=== PATIENT | female | born 1930 | race Caucasian/White ===

== ENCOUNTER 2016-11-28 19:55 | Observation (INO) ==
--- NOTE | 2016-11-28 20:08 | Emergency Department Note ---
Disposition Clinical Impression: Confusion, Uncontrolled hypertension Urinary tract infection Qualifiers: Urinary tract infection type: acute cystitis Hematuria presence: without hematuria Qualified Code(s): N30.00 - Acute cystitis without hematuria Disposition: Admitted As Inpatient Condition: Good Time of Disposition: 23:58 Altered Mental Status HPI - General Chief Complaint: ED Altered Mental Status Stated Complaint: Confused, Disoriented Time Seen by Provider: 11/28/16 20:00 Source: patient Mode of arrival: ambulatory Limitations: no limitations Nursing Notes Reviewed: Yes Vital Signs Reviewed: Yes - History of Present Illness HPI Narrative: 85-year-old white female transported by EMS because of confusion. Apparently she left her house at 9 AM this morning. She lives in [facility]. She does not have any idea where she was going. She is now approximately an hour from home. She apparently stopped a bystander for help, who contacted the state police. MD complaint: confusion Onset (ago): hour(s) (11) Pain Severity: none Consistency of Symptoms: unknown Associated symptoms: Reports: denies other symptoms Treatments prior to arrival: other (None) - Related Data Home Medications Medication Instructions Recorded Confirmed Losartan 25 mg PO DAILY 11/28/16 11/28/16 Omeprazole 11/28/16 11/28/16 Pravastatin Sodium [Pravachol] 80 mg PO QPM 11/28/16 11/28/16 metFORMIN 1,000 mg PO BID 11/28/16 11/28/16 Allergies Allergy/AdvReac Type Severity Reaction Status Date / Time No Known Allergies Allergy Verified 11/28/16 21:09 All systems ED: reviewed and negative except as stated. Constitutional: Denies: fever, chills Eyes: Denies: vision change ENT ED: Denies: ear pain, throat pain Cardiovascular: Denies: chest pain Respiratory: Denies: cough, dyspnea Gastrointestinal: Denies: abdominal pain, nausea, vomiting, diarrhea Genitourinary: Denies: urgency, dysuria, frequency Musculoskeletal: Denies: back pain, neck pain Integumentary: Denies: rash Neurological: Denies: headache, weakness, numbness, paresthesias Past Medical History - Past Medical History Medical history: Reports: diabetes, hypertension Psychiatric history: Reports: no psych history - Social History Smoking Status: Never smoker Alcohol use: Reports: none Drug use: Reports: none Physical Exam - General Limitations: altered mental status General appearance: alert, in no apparent distress - Head Head exam: atraumatic, normocephalic - Eye Eye exam: Present: PERRL, EOMI. Absent: scleral icterus, conjunctival injection - ENT ENT exam: normal oropharynx, mucous membranes moist, TM's normal bilaterally - Neck Neck exam: Present: normal inspection, full ROM, trachea midline. Absent: tenderness, lymphadenopathy - Chest Chest inspection: Present: normal inspection, symmetric chest wall rise - Respiratory Respiratory exam: Present: normal lung sounds bilaterally. Absent: respiratory distress, wheezes - Cardiovascular Cardiovascular exam: Present: regular rate, normal rhythm, systolic murmur ( Left sternal border, 2/6) - Abdominal Exam Abdominal exam: Present: soft, Non-Tender, normal bowel sounds. Absent: distention, organomegaly, mass - Extremities Exam Extremities exam: Present: normal inspection, full ROM, normal capillary refill. Absent: tenderness, calf tenderness - Neurological Exam Neurological exam: Present: alert, reflexes normal. Absent: oriented X3 ( Oriented to person and place, not time. She thinks it is 1971), motor sensory deficit - Psychiatric Psychiatric exam: Present: normal affect, normal mood - Skin Skin exam: Present: warm, dry, intact, normal color Course - Reevaluation(s) Reevaluation #1: Patient remained stable, unchanged. Her blood pressures improved with a single dose of labetalol IV. Her current blood pressure is 160/81. I have discussed with the patient and her family that I felt it was be prudent for her to be observed overnight, IV antibiotics, neuro checks, monitoring of her blood pressure. The patient really wants to go home. She is going to talk with her family and they are going to let me know what the disposition will be. Time: 22:50 Vital Signs Temperature 98.6 F 11/28/16 19:59 Pulse Rate 85 11/28/16 19:59 Respiratory Rate 16 11/28/16 19:59 Blood Pressure 141/105 11/28/16 19:59 O2 Sat by Pulse Oximetry 94 11/28/16 19:59 Temperature 98.6 F 11/28/16 23:38 Pulse Rate 72 11/28/16 23:18 Respiratory Rate 18 11/28/16 23:38 Blood Pressure 158/81 11/28/16 23:38 O2 Sat by Pulse Oximetry 96 11/28/16 23:18 Oxygen Delivery Oxygen Delivery Room Air Altered Mental Status - Differential Diagnosis Likely: alcoholic intoxication, altered mental status, delirium, dementia, hypoglycemia, hyponatremia, psychiatric disease, subarachnoid hemorrhage - Lab Data Lab results reviewed: Yes I reviewed the patient's lab results. Result diagrams: 11/28/16 20:27 11/28/16 20:27 Lab Results 11/28/16 11/28/16 11/28/16 Range/Units 20:26 20:27 20:27 WBC 5.5 (4.3-11.1) K/mcL RBC 4.51 (3.82-4.97) M/mcL Hgb 12.2 (11.5-15.4) g/dL Hct 36.5 (35.3-44.9) % MCV 80.9 L (83.0-100.0) fL MCH 27.1 L (28.0-33.3) pg MCHC 33.4 (31.6-35.5) g/dL RDW 14.7 H (11.5-14.5) % Plt Count 159 (140-400) K/mcL MPV 10.9 (9.4-12.4) fL Immature Gran % 0.2 (0-4) % Seg Neutrophils % 68.6 % Lymphocytes % 19.3 % Monocytes % 9.0 % Eosinophils % 2.0 % Basophils % 0.9 % Neutrophils # 3.8 (1.6-8.9) K/mcL Lymphocytes # 1.1 (0.6-4.6) K/mcL Monocytes # 0.5 (0.0-1.3) K/mcL Eosinophils # 0.1 (0.0-0.6) K/mcL Basophils # 0.1 (0.0-0.2) K/mcL Sodium 140 (136-145) mEq/L Potassium 3.4 L (3.5-4.5) mEq/L Chloride 106 (98-109) mEq/L Carbon Dioxide 21 (19-29) mEq/L BUN 15 (7-20) mg/dL Creatinine 0.75 (0.57-1.11) mg/dL Est GFR ( Amer) > 60 (> 60) Est GFR (Non-Af Amer) > 60 (> 60) BUN/Creatinine Ratio 20 (6-26) Glucose 145 H (70-99) mg/dL Calculated Osmolality 293 (280-300) Calcium 9.5 (8.6-10.8) mg/dL Total Bilirubin 0.6 (0.2-1.2) mg/dL AST 16 (5-34) Units/L ALT 14 (0-55) Units/L Alkaline Phosphatase 60 (38-126) Units/L Serum Total Protein 6.5 (6.0-8.3) g/dL Albumin 3.8 (3.5-5.0) g/dL Globulin 2.7 (2.4-3.5) g/dL Albumin/Globulin Ratio 1.4 (1.1-2.2) Urine Color (Yellow) Urine Clarity (Clear) Urine pH (5.0-8.0) pH Units Ur Specific [place] (1.010-1.025) Urine Protein (Neg-Trace) mg/dL Urine Glucose (UA) (Normal) mg/dL Urine Ketones (Negative) mg/dL Urine Blood (Negative) Urine Nitrite (Negative) Urine Bilirubin (Negative) Urine Urobilinogen (Normal) mg/dL Ur Leukocyte Esterase (Negative) Urine Microscopic RBC (0-3) per hpf Urine Microscopic WBC (0-3) per hpf Ur Squamous Epith Cells (None-Few) per lpf Urine Bacteria (None-Few) per hpf Ur Culture Indicated? (NO) Urine Opiates Screen (Iiazzv=366) ng/mL Ur Oxycodone Screen (Cutoff= 100) ng/mL Ur Barbiturates Screen (Nfqduc=877) ng/mL Ur Phencyclidine Scrn (Cutoff=25) ng/mL Ur Amphetamines Screen (Cczorb=1167) ng/mL U Benzodiazepines Scrn (Ridltu=703) ng/mL Urine Cocaine Screen (Cutoff= 300) ng/mL U Marijuana (THC) Screen (Cutoff = 50) ng/mL Ethyl Alcohol < 10 (0-10) mg/dL 11/28/16 11/28/16 Range/Units 22:11 22:11 WBC (4.3-11.1) K/mcL RBC (3.82-4.97) M/mcL Hgb (11.5-15.4) g/dL Hct (35.3-44.9) % MCV (83.0-100.0) fL MCH (28.0-33.3) pg MCHC (31.6-35.5) g/dL RDW (11.5-14.5) % Plt Count (140-400) K/mcL MPV (9.4-12.4) fL Immature Gran % (0-4) % Seg Neutrophils % % Lymphocytes % % Monocytes % % Eosinophils % % Basophils % % Neutrophils # (1.6-8.9) K/mcL Lymphocytes # (0.6-4.6) K/mcL Monocytes # (0.0-1.3) K/mcL Eosinophils # (0.0-0.6) K/mcL Basophils # (0.0-0.2) K/mcL Sodium (136-145) mEq/L Potassium (3.5-4.5) mEq/L Chloride (98-109) mEq/L Carbon Dioxide (19-29) mEq/L BUN (7-20) mg/dL Creatinine (0.57-1.11) mg/dL Est GFR ( Amer) (> 60) Est GFR (Non-Af Amer) (> 60) BUN/Creatinine Ratio (6-26) Glucose (70-99) mg/dL Calculated Osmolality (280-300) Calcium (8.6-10.8) mg/dL Total Bilirubin (0.2-1.2) mg/dL AST (5-34) Units/L ALT (0-55) Units/L Alkaline Phosphatase (38-126) Units/L Serum Total Protein (6.0-8.3) g/dL Albumin (3.5-5.0) g/dL Globulin (2.4-3.5) g/dL Albumin/Globulin Ratio (1.1-2.2) Urine Color Yellow (Yellow) Urine Clarity Clear (Clear) Urine pH 5.5 (5.0-8.0) pH Units Ur Specific [place] 1.020 (1.010-1.025) Urine Protein 30 H (Neg-Trace) mg/dL Urine Glucose (UA) Normal (Normal) mg/dL Urine Ketones 15 H (Negative) mg/dL Urine Blood Trace-intact H (Negative) Urine Nitrite Positive A (Negative) Urine Bilirubin Negative (Negative) Urine Urobilinogen Normal (Normal) mg/dL Ur Leukocyte Esterase Small H (Negative) Urine Microscopic RBC 0-3 (0-3) per hpf Urine Microscopic WBC 30-50 H (0-3) per hpf Ur Squamous Epith Cells Few (None-Few) per lpf Urine Bacteria Many H (None-Few) per hpf Ur Culture Indicated? YES A (NO) Urine Opiates Screen Negative ([place]=605) ng/mL Ur Oxycodone Screen Negative (Cutoff= 100) ng/mL Ur Barbiturates Screen Negative (Pfucgu=972) ng/mL Ur Phencyclidine Scrn Negative (Cutoff=25) ng/mL Ur Amphetamines Screen Negative (Unzkja=1892) ng/mL U Benzodiazepines Scrn Negative (Xaqpqi=074) ng/mL Urine Cocaine Screen Negative (Cutoff= 300) ng/mL U Marijuana (THC) Screen Negative (Cutoff = 50) ng/mL Ethyl Alcohol (0-10) mg/dL - Radiology Data Radiology results reviewed: Yes I reviewed the patient's radiology results. ITS Impressions Chest X-Ray 11/28/16 20:05 IMPRESSION: No acute cardiopulmonary disease. D/ / Sidney Johnston MD / Sidney Johnston MD Interpreting Provider: Sidney Johnston MD Head CT 11/28/16 20:05 IMPRESSION: 1. No acute intracranial abnormality. 2. Findings compatible with chronic small vessel ischemic disease. D/ / Theron Arshad MD / Theron Arshad MD Interpreting Provider: Theron Arshad MD - EKG Data EKG attestation: Yes I reviewed and interpreted this EKG. EKG results narrative: Normal sinus rhythm, rate of 83, nonspecific ST-T changes. Rhythm strip shows sinus rhythm with rate of 83, IN interval 186 ms, QRS of 85 ms with no other ectopy is interpreted by me. No old EKG available for comparison. TPA Checklist - LKW: 3-4.5 hrs Add. Warnings/Precautions Patient/family understanding: The patient/family members have been counseled and understood the risk, benefit , and alternatives of treatment.
[2016-11-28 20:32] LABS: Basophils # 0.1 K/mcL (0.0-0.2); Basophils % 0.9 %; Eosinophils # 0.1 K/mcL (0.0-0.6); Hematocrit 36.5 % (35.3-44.9); Hemoglobin 12.2 g/dL (11.5-15.4); Immature Granulocytes % 0.2 % (0-4); Lymphocytes # 1.1 K/mcL (0.6-4.6); Lymphocytes % 19.3 %; Mean Corpuscular HGB Conc 33.4 g/dL (31.6-35.5); Mean Corpuscular Hemoglobin 27.1 pg (28.0-33.3); Mean Corpuscular Volume 80.9 fL (83.0-100.0); Mean Platelet Volume 10.9 fL (9.4-12.4); Monocytes # 0.5 K/mcL (0.0-1.3); Neutrophils # 3.8 K/mcL (1.6-8.9); Platelet Count 159 K/mcL (140-400); Red Blood Count 4.51 M/mcL (3.82-4.97); Red Cell Distribution Width 14.7 % (11.5-14.5); Segmented Neutrophils % 68.6 %
[2016-11-28 20:50] LABS: Alanine Aminotransferase 14 Units/L (0-55); Albumin 3.8 g/dL (3.5-5.0); Albumin/Globulin Ratio 1.4 (1.1-2.2); Alkaline Phosphatase 60 Units/L (38-126); Aspartate Amino Transferase 16 Units/L (5-34); BUN/Creatinine Ratio 20 (6-26); Bilirubin,Total 0.6 mg/dL (0.2-1.2); Blood Urea Nitrogen 15 mg/dL (7-20); Calcium 9.5 mg/dL (8.6-10.8); Carbon Dioxide 21 mEq/L (19-29); Chloride 106 mEq/L (98-109); Globulin 2.7 g/dL (2.4-3.5); Glucose 145 mg/dL (70-99); Osmolality,Calculated 293 (280-300); Potassium 3.4 mEq/L (3.5-4.5); Sodium 140 mEq/L (136-145); Total Protein 6.5 g/dL (6.0-8.3); eGFR For African Americans > 60 (> 60); eGFR For Non-African Americans > 60 (> 60)
[2016-11-28] MEDS ORDERED: *HR* Labetalol 20 MG/4 ML SYRINGE IVP ONE (21:02)
[2016-11-28 22:19] LABS: Bilirubin,Urine Negative (Negative); Blood,Urine Trace-intact (Negative); Clarity,Urine Clear (Clear); Color,Urine Yellow (Yellow); Glucose,Urine (UA) Normal (Normal); Ketones,Urine 15 mg/dL (Negative); Leukocyte Esterase,Urine Small (Negative); Nitrite,Urine Positive (Negative); PH,Urine 5.5 pH Units (5.0-8.0); Protein,Urine 30 mg/dL (Neg-Trace); Urobilinogen,Urine Normal (Normal)
[2016-11-28 22:33] LABS: Bacteria,Urine Many per hpf (None-Few); RBC,Urine 0-3 per hpf (0-3); Squamous Epithelial Cell,Urine Few per lpf (None-Few); WBC,Urine 30-50 per hpf (0-3)
[2016-11-28 22:40] LABS: Amphetamine Screen,Urine Negative ng/mL (Cutoff=1000); Barbiturate Screen,Urine Negative ng/mL (Cutoff=200); Benzodiazepines Screen,Urine Negative ng/mL (Cutoff=200); Cannabinoid Screen,Urine Negative ng/mL (Cutoff = 50); Cocaine Screen,Urine Negative ng/mL (Cutoff= 300); Opiate Screen,Urine Negative ng/mL (Cutoff=300); Phencyclidine Screen,Urine Negative ng/mL (Cutoff=25)
[2016-11-29] MEDS ORDERED: Naloxone 0.4 MG/ML INJ IVP PRN (00:15)
[2016-11-29] MEDS ORDERED: *HR* Labetalol 20 MG/4 ML SYRINGE IVP SCH (00:15)
[2016-11-29] MEDS ORDERED: *HR* Labetalol 20 MG/4 ML SYRINGE IVP PRN (00:27)
[2016-11-29] MEDS ORDERED: *HR* Enoxaparin 30 MG/0.3 ML SYRINGE SQ SCH (06:00)
[2016-11-29 13:47] VITALS: BP 149/69
--- NOTE | 2016-11-29 14:56 | Internal Med History&Physical ---
Date of Encounter: 11/29/16 Time of Encounter: 14:00 Assessment and Plan (1) Confusion Current visit: Yes Status: Acute Suspect multifactorial etiology including uncontrolled hypertension, urinary infection, and possible underlying dementia process. She will be treated for UTI and restarted on blood pressure medication. Her PCP can monitor her neurologic status and/or refer her to a neurologist (2) Urinary tract infection Current visit: Yes Status: Acute She has been started on antibiotics. Qualifiers: Urinary tract infection type: acute cystitis Hematuria presence: without hematuria Qualified Code(s): N30.00 - Acute cystitis without hematuria (3) Uncontrolled hypertension Current visit: Yes Status: Acute She has been restarted on blood pressure medication. Internal Medicine - H&P: HPI Chief complaint: Confusion Admitted From: Home Plans for Post Hospital Care: Home History of present illness: Ms. Silveira is a 85 year old female who was brought to emergency room after she was found driving in a confused state. She realized she was lost and ask a airport maintenance chief for assistance. He felt she was confused and contacted her son and EMS. She was brought to [facility] emergency room and evaluated and admitted to [facility] floor for ongoing care needs. She states she feels improved at the present time but not quite back to her baseline. Her son and [id number] are in the room and confirm that she has not returned to baseline yet. She denies previous similar episodes of confusion. She was felt to have UTI in emergency room. She had been out of her antihypertensive medication for 2-3 days and was found to have elevated blood pressure in emergency room. Her neurologic history is negative for known strokes or seizures. Her family reports her balance has decreased in the past 1-2 years but she has not fallen. 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 Family reports her memory has declined slightly but patient was unaware of memory loss. Her cardiovascular history is positive for hypertension but negative for HI heart failure angina DVT or pulmonary embolus. She had left carotid endarterectomy in the past. She has been told she has noncritical stenosis of the right carotid artery. Past Med Surg Social Fam HX - Past Medical History Medical history: diabetes, hypertension Psychiatric history: no psych history - Past Surgical History Surgical History: appendectomy - Social History Smoking Status: Never smoker Smokeless Tobacco Status: No Alcohol use: none Drug use: none Internal Medicine - H&P: Meds Losartan 25 mg PO DAILY 06/30/17 [History] Omeprazole 11/28/16 [History] Pravastatin Sodium [Pravachol] 80 mg PO QPM 11/28/16 [History] metFORMIN 1,000 mg PO BID 11/28/16 [History] Allergies No Known Allergies Allergy (Verified 11/28/16 21:09) All Systems PM: A 10-system review of systems was performed and is negative for pertinent findings except as documented above in the HPI. Review of systems: Gen.: Her weight has been stable the past few months Cardiovascular: As per history of present illness Respiratory: She is a lifelong nonsmoker. She has been complaining of dyspnea over the past few weeks when she awakens but seems to improve after beginning morning activities. GI: She denies disorders of her liver gallbladder or exocrine pancreas : She has had urinary tract infections in the past but denies other kidney or bladder disorders. She has had hysterectomy. Neurologic: As per history of present illness Endocrine: She has hyperlipidemia. She was diagnosed with DM 2 approximately 10 years ago. She has no known thyroid disease. Hematology/oncology: She denies blood disorders cancers or anemia Psychiatric: She denies anxiety depression or other mental health issues Musk skeletal: She has DJD. She has had right total shoulder replacement and back surgery in the past. - Constitutional Vitals: Temp Pulse Resp BP Pulse Ox 98.7 F 76 16 149/69 97 11/29/16 13:45 11/29/16 13:45 11/29/16 13:45 11/29/16 13:45 11/29/16 13:45 Exam: Gen.: She is a well-developed well-nourished female who appears in no acute distress HEENT: Head is atraumatic and normal cephalic. Eyes: EOMI. There is no scleral icterus. Mouth: Mucosa is moist. Neck: Supple and nontender. There is no thyromegaly or adenopathy noted. She has a well-healed left carotid endarterectomy scar Heart: Regular without murmurs gallops or ectopics. Lungs: No wheezes or crackles heard. Abdomen: Soft and nontender. No masses or guarding are noted. Extremities: There is no cyanosis edema or clubbing noted. Dorsalis pedis and posttibial pulses are 1-2 over 2 bilaterally. She has mild DJD changes her hands. Neurologic: Mental status: She is talkative but a fair historian. She had difficulty recalling her age, past medical history, and other details of history. She had impairment in drawing clock face with hands at the requested time. Cranial nerves: Smile is symmetric. Forehead wrinkles bilaterally. Tongue protrudes midline. EOMI. Motor: There is no pronator drift. Cerebellar : Finger to nose is intact bilaterally. Skin: Warm and dry Internal Med - H&P Results - Labs CBC & Chem 7: 11/28/16 20:27 11/28/16 20:27 Labs: Cardiac Enzymes 11/29/16 11/29/16 11/29/16 Range/Units 03:15 06:45 12:26 Troponin I 0.05 H* 0.04 H* 0.03 (0-0.03) ng/mL
--- NOTE | 2016-11-29 15:11 | Discharge Summary ---
Date of Encounter: 11/29/16 Time of Encounter: 14:00 - Discharge Diagnosis (1) Confusion Priority: Primary Status: Acute (2) Urinary tract infection Priority: Secondary Status: Acute Qualifiers: Urinary tract infection type: acute cystitis Hematuria presence: without hematuria Qualified Code(s): N30.00 - Acute cystitis without hematuria (3) Uncontrolled hypertension Priority: Secondary Status: Acute - Discharge Medications Prescriptions: Sulfamethoxazole/Trimeth DS [Bactrim DS] 1 each PO BID #6 tablet Home Medications: Losartan 25 mg PO DAILY 11/28/16 [History] Omeprazole 11/28/16 [History] Pravastatin Sodium [Pravachol] 80 mg PO QPM 11/28/16 [History] metFORMIN 1,000 mg PO BID 11/28/16 [History] Sulfamethoxazole/Trimeth DS [Bactrim DS] 1 each PO BID #6 tablet 11/29/16 [Rx] Allergies/Adverse Reactions: Allergies No Known Allergies Allergy (Verified 11/28/16 21:09) Date of admission: 11/28/16 23:51 Primary care physician: Sloane Brown - Patient Status Disposition: Home, Self-Care Condition: Good Overall status at discharge: patient is progressing back to baseline - Discharge Instructions Follow Up With: Sloane Brown DO [Primary Care Provider] - 1 week - Diet and Activity Activity: resume usual activities as tolerated Diet: advance to your usual diet Hospital course: Ms. Silveira is a 85 year old female was brought to emergency room after she was found driving in a confused state. She realized she was lost and ask a medical anthropology director for assistance. He felt she was confused and contacted her son and EMS. She was brought to [facility] emergency room and evaluated and admitted to [facility] floor for ongoing care needs. Initial orders were written by the emergency room physician. I saw her the afternoon of November 29 and performed a history physical and discharge. She was given Rocephin empirically for UTI in emergency room. I will give her Septra DS twice a day for 3 days at discharge. Losartan was restarted and her blood pressure returned to a safe range. Her mental status had improved when I saw her but was not back to baseline per patient and family report. She felt stable and safe for discharge home however which I felt was reasonable. I encouraged her to follow with her PCP within one week. I explained to the patient and family that her PCP can do more formal mental status testing and/or refer her to a neurologist for the testing. I encouraged her to avoid OTC NSAIDs. She will use OTC Tylenol for her DJD pain. - Time Spent with Patient Total time spent providing and/or coordinating discharge services: - Constitutional Vitals: Temp Pulse Resp BP Pulse Ox 98.7 F 76 16 149/69 97 11/29/16 13:45 11/29/16 13:45 11/29/16 13:45 11/29/16 13:45 11/29/16 13:45
--- NOTE | 2016-12-01 12:10 | Electrocardiograph Report ---
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
== END 2016-11-29 15:50 | disposition home or self-care (01) ==
LOC: EMEROOPIK 19:55 → INPPIK 19:55
PROVIDERS: ADMIT Internal Medicine; ATTEND Internal Medicine